=== PATIENT | male | born 1975 | race Caucasian/White ===

== ENCOUNTER 2018-08-03 15:20 | Emergency (ER) | payer OTHER ==
[~2018-08-03] VITALS: Ht 182.9 cm; Wt 88.6 kg
[2018-08-03 15:44] VITALS: BP 123/76
[2018-08-03] MEDS ORDERED: naproxen 500mg tablet PO ONE (15:55)
--- NOTE | 2018-08-03 16:05 | NUR ---
Pt left prior to receiving medication.
== END 2018-08-03 16:09 | disposition home or self-care (01) ==
LOC: ER 15:20
DX: F15.10 Other stimulant abuse, uncomplicated (principal); Z02.89 Encounter for other administrative examinations
CPT/HCPCS: 99281

== ENCOUNTER 2020-02-02 06:33 | Emergency (ER) | payer SELFPAY ==
[~2020-02-02] VITALS: Ht 182.9 cm; Wt 92.7 kg
--- NOTE | 2020-02-02 06:48 | NUR ---
Pts friend whom brought pt in to [facility]. Friend Ashley Feliciano left contact phone numbers for any questions:
[2020-02-02] MEDS ORDERED: LORazepam 1 MG tablet PO ONE (07:05)
--- NOTE | 2020-02-02 09:31 | NUR ---
CALL DEANNA WHEN PT IS READY FOR D/C {[phone]}
[2020-02-02 10:34] VITALS: BP 119/84
--- NOTE | 2020-02-02 11:15 | NUR ---
PT AMBULATED OUT OF ER WITH HIS D/C PAPERWORK IN STABLE CONDITION,NO DISTRESS NOTED.DEANNA OUTSIDE WAITING FOR THE PT .KALYAN STRATEGIC ACCOUNT DIRECTOR WALKED OUT WITH THE PT.
== END 2020-02-02 11:17 | disposition home or self-care (01) ==
LOC: ER 06:33
DX: M62.81 Muscle weakness (generalized) (principal); T43.625A Adverse effect of amphetamines, initial encounter; Y92.89 Other specified places as the place of occurrence of the external cause
CPT/HCPCS: 93005; 99285

== ENCOUNTER 2020-06-06 00:15 | Emergency (ER) | payer OTHER ==
[~2020-06-06] VITALS: Ht 182.9 cm; Wt 86.0 kg
[2020-06-06 00:25] VITALS: BP 137/84
[2020-06-06] MEDS ORDERED: CefTRIAXone 1000mg IM Kit (w/lidocaine diluent) IM STA (01:07)
[2020-06-06] MEDS ORDERED: DOXY100C43 PO (01:07)
[2020-06-06] MEDS ORDERED: DOXYCYCLINE 100MG CAPSULE PO ONE (01:10)
== END 2020-06-06 01:27 | disposition home or self-care (01) ==
LOC: ER 00:16
DX: Z11.3 Encounter for screening for infections with a predominantly sexual mode of transmission (principal); L03.114 Cellulitis of left upper limb; F15.90 Other stimulant use, unspecified, uncomplicated; Z79.899 Other long term (current) drug therapy
CPT/HCPCS: 36415; 87491; 87591; 96372; 99283; J0696

== ENCOUNTER 2022-11-28 20:46 | Emergency (ER) | payer MEDICAID ==
[~2022-11-28] VITALS: Ht 182.9 cm; Wt 82.0 kg
[2022-11-28 20:57] VITALS: TEMP 98.2
[2022-11-29 02:47] LABS: BILIRUBIN,URINE NEGATIVE (Neg); CLARITY,URINE SLIGHTLY CLOUDY (Clear); COLOR,URINE YELLOW (Yellow); GLUCOSE, URINE NEGATIVE (Neg); KETONES,URINE NEGATIVE (Neg); LEUKOCYTE ESTERASE ,URINE NEGATIVE (Neg); NITRITES, URINE NEGATIVE (Neg); OCCULT BLOOD,URINE NEGATIVE (Neg); PROTEIN,URINE TRACE mg/dl (Neg)
[2022-11-29 02:52] LABS: UA COLLECTION TYPE NON-SPECIFIED
[2022-11-29 02:53] LABS: MUCUS STRANDS MANY /LPF (Neg); SQUAMOUS EPITHELIAL CELL,UR FEW /LPF (FEW)
[2022-11-29 02:55] LABS: CAL OXALATE CRYSTALS 2+ /HPF (NEGATIVE)
[2022-11-29 02:56] LABS: BACTERIA,URINE FEW /HPF (Neg); RBC,URINE 0-2 /HPF (0-2); WBC,URINE 20-30 /HPF (0-4)
[2022-11-29 03:16] VITALS: BP 111/76; PULSE 91; RESP 17; O2SAT 98
[2022-11-29] MEDS ORDERED: dexamethasone sod phosphate 10mg/ml inj IM STA (03:54)
[2022-11-29] MEDS ORDERED: ondansetron 4mg rapidly disintigrating tab PO ONE (03:55)
[2022-11-29] MEDS ORDERED: triamcinolone acetonide 40mg/ml inj IM ONE (03:55)
[2022-11-29] MEDS ORDERED: sulfamethoxazole/trimethoprim DS (800/160mg) tablet PO ONE (03:55)
[2022-11-29] MEDS ORDERED: diphenhydrAMINE 50 mg/ml inj IM ONE (03:55)
[2022-11-29] MEDS ORDERED: PRED10TA23 PO (04:04)
[2022-11-29] MEDS ORDERED: SULF1TAB49 PO (04:05)
== END 2022-11-29 04:31 | disposition home or self-care (01) ==
LOC: ER 20:47
DX: L23.7 Allergic contact dermatitis due to plants, except food (principal)
CPT/HCPCS: 36415; 81001; 87088; 87491; 87591; 96372; 99284; J1100; J1200; J3301

== ENCOUNTER 2023-04-29 14:02 | Emergency (ER) | payer MEDICAID ==
[~2023-04-29] VITALS: Ht 185.4 cm; Wt 90.9 kg
[2023-04-29 14:09] VITALS: BP 118/77; PULSE 80; RESP 18; O2SAT 98
[2023-04-29 14:20] VITALS: TEMP 97.8
== END 2023-04-29 14:44 | disposition home or self-care (01) ==
LOC: ER 14:03
DX: F15.10 Other stimulant abuse, uncomplicated (principal); Z88.0 Allergy status to penicillin
CPT/HCPCS: 99281

== ENCOUNTER 2024-07-16 11:25 | Emergency (ER) | payer MEDICAID ==
[~2024-07-16] VITALS: Ht 182.9 cm; Wt 95.9 kg
[2024-07-16 11:26] VITALS: BP 136/81; PULSE 128; RESP 16; TEMP 98.4; O2SAT 98
[2024-07-16] MEDS ORDERED: NALO4SPR BOTHNARES (12:56)
[2024-07-16] MEDS ORDERED: PARO30TA97 PO (12:56)
[2024-07-16] MEDS ORDERED: BUPR1FIL20 SL (12:56)
[2024-07-16] MEDS: buprenorphine/naloxone 8MG-2MG SUBlingual film SL ONE (12:56)
--- NOTE | 2024-07-16 13:04 | Physician Documentation ---
HPI ~ General Chief Complaint: Medication Refill Stated Complaint: MED REFILLS Time Seen by MD: 12:14 History of Present Illness HPI Comments This is a 49-year-old male who presents requesting a medication refill of Suboxone and his Paxil, patient reports that is new to the area in his looking to enter a sober living program in the area though has not had a chance to establish with a new primary care provider though is hoping to get an appointment in the next few days with [facility]. Patient reports that he has been without both medications for approximately two weeks. Review of cures demonstrates patient last filled prescription for Suboxone in mid May. Medication Reconciliation Allergies: Uncoded Allergies: PENICILLIN (Allergy, Unknown, 06/06/20) Scheduled Buprenorphine HCl/Naloxone HCl (Buprenorphine-Nalox 8-2Mg Film), 1 STRIP SL Q12H Naloxone HCl (Narcan), 1 SPRAYS BOTHNARES ONCE Paroxetine HCl (Paxil), 1 TAB PO DAILY Past Medical History Past Medical History: No Pertinent History Past Surgical History: noncontributory Drug Use: methamphetamine Lives In: Home Review of Systems ROS As stated above in the HPI, otherwise all systems are reviewed and negative. Physical Exam Physical Exam Vital Signs: Temperature: 98.4, Source: Oral, Heart Rate: 128, Respiratory Rate: 16, BP: 136/81, Pulse Oximetry: 98, Weight: 95.900 Oxygen Flow Rate: 0 Physical Exam VITALS: Reviewed and as above. GENERAL: Alert, nontoxic appearing, no apparent distress. RESPIRATORY: No increased work of breathing, no respiratory distress, speaking in full clear sentences PSYCH: Anxious appearing otherwise normal mood and affect Progress Results/Orders Results/Orders Orders - ABDELRAHMAN WEBB Substance Use Navigator (07/16/24 12:49) Completed Orders - ABDELRAHMAN WEBB Buprenorphine/Naloxone Sl Film (Suboxone (07/16/24 12:45) Vital Signs 07/16/24 11:26 Temp 98.4 Pulse 128 Resp 16 B/P (MAP) 136/81 Pulse Ox 98 O2 Flow Rate 0 Medical Decision Making Additional info obtained from: old records, other (Cures database) Findings This 49-year-old male with history of opioid abuse and anxiety presented requesting medication refills of Suboxone and Paxil after movement of the area and running out of his previously prescribed medications, patient is in the process of establishing with a primary care provider. I reviewed external medication history and [employer] database for controlled prescribing and noted patient was last prescribed Suboxone in mid May which fits with patient's report of history. Patient was otherwise reporting feeling well no other acute symptoms or concerns and had a benign physical exam, stable vital signs though the patient was noted to be somewhat tachycardic on triage which I attribute to patient anxiety and mild opioid withdrawal symptoms given patient has been off Suboxone for some time now which is causing him some anxiety along with past hi story of anxiety which he has been two weeks without his prescribed Paxil. Due to patient's symptomatic anxiety and opiate withdrawal I will prescribe a short course a Suboxone along with a one month supply of Paxil until he can get in with his primary care provider. Patient advised to return to the emergency department if he is not able to get in with primary care provider in the next week. Patient was referred to substance use navigator for referral to local services and was provided a prescription for naloxone due to history of substance use. Differential Dx:Considerations: Include: Adverse circumstances, Economic, Medical services unavail. Departure Disposition: 01 HOME / SELF CARE / HOMELESS Impression: Primary Impression: General medical exam Additional Impressions: Medication refill History of anxiety History of opioid abuse Condition: Improved Discharge Instructions: Medical Screening Exam, Medicine Refill at the Emergency Department Additional Instructions: The substance use navigator may reach out to you with community resources, if you have any questions please contact substance use navigator at the number on the business card provided. Please take the medications as prescribed, follow up as soon as possible with primary care provider to manage these medications alf. Please return to the emergency department for any new or worsening concerning symptoms. You have been prescribed an opioid medication, there are risks of addiction and overdose associated with the use of opioids. The risk of addiction to an opioid for increases for those suffering both from mental health and substance use disorders. The use of an opioid while taking other central nervous system depressants including but not limited to benzodiazepines or alcohol, or other opioids increases the risk of serious side effects that can include overdose or respiratory depression that can lead to serious injury or . Referrals: NO PRIMARY CARE PROVIDER (PCP) Prescriptions Naloxone HCl (Narcan) 4 Mg/Actuation [place] 1 SPRAYS BOTHNARES ONCE for 1 Day, #1 EA 0 Refills Prov: ABDELRAHMAN WEBB BASKET SORTER 07/16/24 Buprenorphine HCl/Naloxone HCl (Buprenorphine-Nalox 8-2Mg Film) 8 Mg-2 Mg Film 1 STRIP SL Q12H for 14 Days, #28 STRIP 0 Refills Prov: ABDELRAHMAN WEBB 07/16/24 Paroxetine HCl (Paxil) 30 Mg Tablet 1 TAB PO DAILY for 30 Days, #30 TAB 0 Refills Prov: ABDELRAHMAN WEBB 07/16/24 Education Educated: Patient Educated regarding: diagnosis, treatment, prognosis, need for follow up Signature Scribe Signature: No scribe Attestation: The note accurately reflects work and decisions made by me.MARY Fischer 07/16/24 21:24 ABDELRAHMAN WEBB July 16, 2024 13:04
== END 2024-07-16 13:24 | disposition home or self-care (01) ==
LOC: ER 11:26
DX: F41.9 Anxiety disorder, unspecified (principal); F15.90 Other stimulant use, unspecified, uncomplicated; F11.10 Opioid abuse, uncomplicated; Z76.0 Encounter for issue of repeat prescription; Z79.899 Other long term (current) drug therapy
CPT/HCPCS: 99283